=== PATIENT | female | born 1980 | race Caucasian/White ===

== ENCOUNTER 2017-02-17 22:35 | Emergency (ER) | payer OTHER, MEDICARE ==
[~2017-02-17 22:35] MED LIST: MYRBETRIQ25 MG PO; OLANZAPINE20 MG PO; OMEPRAZOLE20 MG PO; PRILOSEC 20MG C20 MG PO
[2017-02-17 22:51] VITALS: BP 132/81
--- NOTE | 2017-02-17 23:23 | RADIOLOGY REPORT ---
EXAMINATION: XR ANKLE, LEFT CLINICAL INFORMATION: Fall with ankle twisting and swelling. COMPARISON: None TECHNIQUE: AP, lateral, and mortise views of the left ankle. FINDINGS: There is no visible acute fracture or dislocation. There is mild lateral malleolar soft tissue swelling suggestive of ligamentous injury. There is a small avulsion fragment tip of the lateral malleolus from previous injury. IMPRESSION: Moderate soft tissue swelling lateral malleolus suggestive of ligamentous injury. No visible acute fracture or dislocation seen. There is a small bony fragment tip of lateral malleolus from previous injury.
--- NOTE | 2017-02-17 23:48 | ED UPPER/LOWER EXTREMITY COMPL ---
History of Present Illness General Chief Complaint: Foot or Ankle Injury Stated Complaint: TWISTED LEFT ANKLE Source: patient, family Exam Limitations: no limitations Vital Signs & Intake/Output Vital Signs & Intake/Output Vital Signs Date Time Temp Pulse Resp B/P B/P Pulse O2 O2 Flow FiO2 Mean Ox Delivery Rate 02/18 0055 Room Air 02/17 2251 98.3 78 16 132/81 98 Room Air ED Intake and Output 02/18 0000 02/17 1200 Intake Total 120 Output Total Balance 120 Intake, Oral 120 Patient 145 lb Weight Weight Reported by Patient Measurement Method Allergies Coded Allergies: NO KNOWN ALLERGIES (02/17/17) Reconcile Medications Mirabegron (Myrbetriq) 25 MG TAB.ER.24H 1 TAB PO DAILY BLADDER (Reported) Olanzapine 20 MG TABLET 1-2 TAB PO QPM MENTAL HEALTH/SLEEP (Reported) Omeprazole 20 MG CAPSULE.DR 1 CAP PO PRN HEART BURN (Reported) Omeprazole (Prilosec) 20 MG CAPSULE.DR 1 TAB PO DAILY HEART BURN Triage Note: MECHANICAL TRIP AND FALL APPROX 2 HOURS AGO AND PT TWISTED LEFT ANKLE, NOW HAS CONTINUED PAIN AND SWELLING TO ANKLE. MED WITH MOTRIN IN TRIAGE. ABLE TO BEAR WEIGHT WITH SLIGHT LIMP. Triage Nurses Notes Reviewed? yes Onset: Abrupt Duration: hour(s): Timing: single episode today Severity: mild Pain/Injury Location: Left: Ankle. Method of Injury: fall No Modifying Factors: none Modifying Factors: Improves With: rest. Associated Symptoms: swelling : No Patient currently breastfeeds: No HPI: 36 yo woman h/o prior left ankle fracture presents with left ankle pain. "I was rolled my ankle in a pot hole...and now it really hearts... especially to walk on it." Past History Travel History Traveled to [place] past 21 day No Medical History Any Pertinent Medical History? see below for history Neurological: migraine, MR EENT: NONE Cardiovascular: NONE Respiratory: NONE Gastrointestinal: NONE Hepatic: NONE Renal: NONE Musculoskeletal: NONE Psychiatric: psychosis Endocrine: NONE Blood Disorders: NONE Cancer(s): NONE [employer] OPERATOR/Reproductive: NONE Surgical History Surgical History: non-contributory Psychosocial History What is your primary language Kazakh Tobacco Use: Never used Family History Hx Contributory? No Review of Systems Review of Systems Constitutional: Reports: no symptoms. EENTM: Reports: no symptoms. Respiratory: Reports: no symptoms. Cardiovascular: Reports: no symptoms. Gastrointestinal/Abdominal: Reports: no symptoms. Genitourinary: Reports: no symptoms. Musculoskeletal: Reports: no symptoms. Skin: Reports: no symptoms. Neurological/Psychological: Reports: no symptoms. Hematologic/Endocrine: Reports: no symptoms. Immunological: Reports: no symptoms. All Other Systems: Reviewed and Negative Physical Exam Physical Exam General Appearance: well developed/nourished, mild distress Head: atraumatic Eyes: Bilateral: normal appearance. Ears, Nose, Throat: normal pharynx, normal ENT inspection, hearing grossly normal Neck: normal inspection, supple Cardiovascular/Respiratory: regular rate/rhythm Back: normal inspection Leg Left: left lateral ankle with mild swelling, minimal tenderness to palpation. Skin: intact, normal color, warm/dry Lymphatic: no anterior cervical yareli Progress Differential Diagnosis: contusion, fracture, sprain Plan of Care: jamie bandage to left ankle by nursing... full report below. Comments: PATIENT: PAUL MARTINEZ PRESENT AGE: 36 PATIENT ACCOUNT NO: [id number] : 80 LOCATION: [facility] ORDERING PHYSICIAN: CELIA CLIFTON DO (TBS) SERVICE DATE: 02/17/17 EXAM TYPE: RAD - XRY-ANKLE 3 OR MORE VIEWS L EXAMINATION: XR ANKLE, LEFT CLINICAL INFORMATION: Fall with ankle twisting and swelling. COMPARISON: None TECHNIQUE: AP, lateral, and mortise views of the left ankle. FINDINGS: There is no visible acute fracture or dislocation. There is mild lateral malleolar soft tissue swelling suggestive of ligamentous injury. There is a small avulsion fragment tip of the lateral malleolus from previous injury. IMPRESSION: Moderate soft tissue swelling lateral malleolus suggestive of ligamentous injury. No visible acute fracture or dislocation seen. There is a small bony fragment tip of lateral malleolus from previous injury. DICTATED BY: SCOTT PATEL MD DATE/TIME DICTATED:02/17/172315 [employer] DRAFTING OFFICER:ADALID DATE/TIME TRANSCRIBED:02/17/172315 CONFIDENTIAL, DO NOT COPY WITHOUT APPROPRIATE AUTHORIZATION. <Electronically signed in Other Vendor System> SIGNED BY: SCOTT PATEL MD 02/17/17 2323 Departure Departure Disposition: HOME OR SELF CARE Condition: Stable Clinical Impression Primary Impression: Left ankle sprain Referrals: MARYSE GRIMALDO MD (PCP/Family) Departure Forms: Customer Survey General Discharge Information Comments jamie bandage to left ankle by nursing team... pt declines crutches. close follow up encouraged.
== END 2017-02-18 01:28 ==
LOC: ERH 22:35
DX: S93.402A Sprain of unspecified ligament of left ankle, initial encounter (principal); W17.2XXA Fall into hole, initial encounter; Y92.9 Unspecified place or not applicable; Y93.9 Activity, unspecified
CPT/HCPCS: 73610-LT